=== PATIENT | male | born 1990 | race Caucasian/White ===

== ENCOUNTER 2018-04-16 20:47 | Emergency (ER) | payer SELFPAY ==
[~2018-04-16] VITALS: Ht 170.2 cm; Wt 63.5 kg
[~2018-04-16 20:47] MED LIST: HYDR-2758 PO
[2018-04-16 21:07] VITALS: BP 131/81
--- NOTE | 2018-04-16 21:24 | PHYS DOC ---
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 He has been drinking alcohol today to relieve the pain. Pt states that his left great toe is numb to touch. He denies any loss of bowel/bladder control, saddle anesthesia, or recent fall/injury. 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 He states the pain is so severe, currently 10/10 on the pain scale, that he is unable to ambulate. Pt states he has tried purchasing illegal morphine on the streets for relief of the pain with no improvment. Review of Systems Review of Systems Constitutional: Denies fever or chills [] GI: Denies saddle anesthesia : denies loss of bowel or bladder control Musculoskeletal: reports low back pain radiates down left leg, unable to ambulate due to pain Integument: Denies rash or skin lesions [] Neurologic: Denies headache, focal weakness or sensory changes [] All other systems were reviewed and found to be within normal limits, except as documented in this note. Current Medications Current Medications Current Medications Medications (Trade) Dose Ordered Sig/[facility] Start Time Stop Time Status Last Admin Dose Admin Ketorolac Tromethamine (Toradol Im) 30 mg 1X ONCE 04/16/18 21:30 04/16/18 21:31 DC 04/16/18 21:40 30 MG Orphenadrine Citrate (Norflex) 60 mg 1X ONCE 04/16/18 21:30 04/16/18 21:31 DC 04/16/18 21:41 60 MG Allergies Allergies Allergies Coded Allergies Type Severity Reaction Last Updated Verified No Known Drug Allergies 03/21/16 No Physical Exam Physical Exam Constitutional: Well developed, well nourished, moderate distress, strong odor of ETOH, tearful [] HENT: Normocephalic, atraumatic, bilateral external ears normal, oropharynx moist, no oral exudates, nose normal. [] Eyes: PERRLA, conjunctiva normal Skin: Warm, dry, no erythema, no rash. [] Back: bilateral lower muscular tenderness, straight leg lift normal LLE Extremities: No cyanosis, no clubbing, ROM intact, no edema. [] Neurologic: Alert and oriented X 3, normal motor function, normal sensory function, no focal deficits noted. [] Psychologic: Affect normal, judgement normal, mood normal. [] Current Patient Data Vital Signs Vital Signs Date Time Temp Pulse Resp B/P (MAP) Pulse Ox O2 Delivery O2 Flow Rate FiO2 04/16/18 21:07 97.6 86 18 99 Room Air 97.6 EKG EKG [] Radiology/Procedures Radiology/Procedures [] Course & Med Decision Making Course & Med Decision Making Pertinent Labs and Imaging studies reviewed. (See chart for details) DX: Chonic low back pain with left sided sciatica Pt was given 60 mg IM norflex and 30 mg IM toradol in the ER reports significant improvement after these medications, able to ambulate with steady gait. Prescriptions were written for naproxen and orphenadrine. Activity as tolerated, may apply ice or heat for comfort. Follow up with Dr. Salgado, call in the morning for an appointment. Patient verbalized an understanding of home care , medications, follow-up, and return to ED instructions and was in agreement with the plan of care. [] Dragon Disclaimer Dragon Disclaimer This electronic medical record was generated, in whole or in part, using a voice recognition dictation system. Departure Departure Impression: Primary Impression: Left-sided low back pain with sciatica Disposition: HOME, SELF-CARE Condition: STABLE Referrals: NO PCP (PCP) Patient Instructions: Back Pain, Adult, [id number] Additional Instructions: Fill prescriptions and use as directed. May apply ice or heat for additional pain relief. Activity as tolerated. Recommend that you follow up with Dr. Salgado , call for an appointment tomorrow. Return to ER if symptoms worsen. [facility] Business Office [address], [address] [place] [address] Scripts Orphenadrine Citrate (ORPHENADRINE CITRATE) 100 Mg Tablet.er 100 MG PO BID for 14 Days, #28 TAB.SR 0 Refills Prov: GUSTABO HUNTER APRN 04/16/18 Naproxen (NAPROXEN) 500 Mg Tablet. 1 TAB PO BID, #60 TAB 1 Refill Prov: GUSTABO HUNTER APRN 04/16/18 Attending Signature Attending Signature I have reviewed the PA/SAMPLE ROOM SUPERVISOR's note and plan of care. I was available for consultation as needed during the patient's visit in the emergency department. I agree with the clinical impression, plan, and disposition. Problem Qualifiers Primary Impression: Left-sided low back pain with sciatica Chronicity: chronic Sciatica laterality: sciatica of left side Qualified Codes: M54.42 - Lumbago with sciatica, left side; G89.29 - Other chronic pain GUSTABO HUNTER APRN Apr 16, 2018 21:24 ECHO DAVIDSON DO Apr 17, 2018 02:57
[2018-04-16] MEDS ORDERED: ORPHENADRINE CITRATE 60 MG/2 ML VIAL. IM ONE (21:30)
[2018-04-16] MEDS ORDERED: KETOROLAC 60 MG/2 ML INJ. IM ONE (21:30)
[2018-04-16] MEDS ORDERED: ORPH100T PO (22:33)
[2018-04-16] MEDS ORDERED: NAPR500T8 PO (22:33)
== END 2018-04-16 22:39 | disposition home or self-care (01) ==
LOC: ER 20:47
DX: M54.42 Lumbago with sciatica, left side (principal); G89.29 Other chronic pain
CPT/HCPCS: 96372; 99284; J1885; J2360